=== PATIENT | female | born 1980 | race Two or more races ===

== ENCOUNTER 2019-01-08 11:15 | Inpatient (IN) | payer BC ==
[~2019-01-08] VITALS: Ht 167.6 cm; Wt 71.3 kg
[2019-01-08] MEDS ORDERED: LIDOCAINE W/ EPINEPHRINE 1 % INJ 30ML ONE (13:01)
[2019-01-08] MEDS ORDERED: BUPIVACAINE 0.25% INJ 50ML VIAL ONE (13:01)
[2019-01-08] MEDS ORDERED: fentaNYL CITRATE 10 ML ONE (13:14)
[2019-01-08] MEDS ORDERED: ROCURONIUM 10MG/ML 10ML VIAL IV ONE (13:14)
[2019-01-08] MEDS ORDERED: SODIUM CHLORIDE LOCK 10 ML ONE (13:14)
[2019-01-08] MEDS ORDERED: MIDAZOLAM HCL 1MG/1ML-2 ML VIAL ONE (13:14)
[2019-01-08] MEDS ORDERED: fentaNYL CITRATE 100 MCG/2 ML VL ONE (13:14)
[2019-01-08] MEDS ORDERED: HYDROmorphone HCL 2 MG/ML VL ONE (13:14)
[2019-01-08] MEDS ORDERED: PROPOFOL 10 MG/ML 20 ML IV ONE (13:14)
[2019-01-08] MEDS ORDERED: ONDANSETRON HCL 4 MG/2 ML VIAL ONE (13:14)
[2019-01-08] MEDS ORDERED: ceFAZolin 1GM/50ML 100 ML IV ONE (13:17)
[2019-01-08] MEDS ORDERED: ceFAZolin 1GM/50ML 50 ML IV ONE (13:30)
[2019-01-08] MEDS ORDERED: NITROGLYCERIN 0.4 MG SL TAB SL PRN (13:30)
[2019-01-08] MEDS ORDERED: ACETAMINOPHEN 500 MG TAB PO PRN (13:30)
[2019-01-08] MEDS ORDERED: MORPHINE SULF INJ 2 MG/ML SYRINGE 1ML IV PRN (13:30)
[2019-01-08] MEDS ORDERED: NEOSTIGMINE 1 MG/ML INJ (10mg/10ML VIAL) IV ONE (13:35)
[2019-01-08] MEDS ORDERED: DexAMETHasone SOD PHOS 10MG/1ML VIAL INJ IV ONE (13:35)
[2019-01-08] MEDS ORDERED: GLYCOPYRROLATE 0.2 MG/ML 1ML VIAL IV ONE (13:35)
[2019-01-08] MEDS ORDERED: SUCCINYLCHOLINE CHLORIDE 20 MG/ML 10ML VIAL IV ONE (13:35)
[2019-01-08] MEDS ORDERED: METHYLENE BLUE 0.5% 5MG/ML 10ml AMP IV ONE (13:59)
[2019-01-08] MEDS ORDERED: ceFAZolin 1GM VL ONE (14:55)
[2019-01-08] MEDS ORDERED: CONJ ESTROGENS 0.625MG/GM VAG CRM 30GM PV ONE (16:07)
[2019-01-08] MEDS ORDERED: LABETALOL HCL 5 MG/ML 4ML SYRINGE IV PRN (16:15)
[2019-01-08] MEDS ORDERED: hydrALAZINE HCL 20 MG/ML VL IV PRN (16:15)
[2019-01-08] MEDS ORDERED: HYDROmorphone HCL 2 MG/ML VL IV PRN (16:15)
[2019-01-08] MEDS ORDERED: ePHEDrine SULFATE 50 MG/ML AMP IV PRN (16:15)
[2019-01-08] MEDS ORDERED: MIDAZOLAM HCL 1MG/1ML-2 ML VIAL IV PRN (16:15)
[2019-01-08] MEDS ORDERED: ONDANSETRON HCL 4 MG/2 ML VIAL IV ONE (16:15)
[2019-01-08] MEDS ORDERED: KETOROLAC TROMETH 30 MG/ML 1ML VIAL IV ONE (16:15)
[2019-01-08 18:00] VITALS: BP 121/59
[2019-01-08] MEDS ORDERED: MORPHINE SULFATE 4 MG/ML SYR/VIAL IV ONE (18:00)
--- NOTE | 2019-01-08 18:00 | NUR ---
MS admit from OR LEROY VELASCO admitted to tele/MS after SBAR received. Patient oriented to CECILIA SUTTON, primary RN, unit, room, bed, and unit policies regarding patient care and visiting hours. Patient weighed by bed scale and encouraged to call if they need something. All questions and concerns addressed, patient verbalized understanding.
[2019-01-08] MEDS: SODIUM CHLORIDE 0.9% 1,000 ML IV SCH (18:48)
--- NOTE | 2019-01-08 19:30 | NUR ---
RECEIVED PATIENT LYING IN BED, AWAKE, ALERT, ORIENTED X4. NO S/S OF RESPIRATORY DISTRESS, DENIES SOB AND CHEST PAIN. ORIENTED ON PLAN OF CARE. BED IS LOCKED AND IN LOWEST LEVEL, SIDE RAILS UP X2, CALL LIGHT WITHIN REACH. WILL CONTINUE TO MONITOR
[2019-01-08] MEDS: MORPHINE SULFATE 4 MG/ML SYR/VIAL IV PRN (20:40)
[2019-01-08 21:47] VITALS: BP 114/73
[2019-01-09] MEDS: SODIUM CHLORIDE 0.9% 1,000 ML IV SCH ×5 (00:26→23:55)
[2019-01-09] MEDS: MORPHINE SULFATE 4 MG/ML SYR/VIAL IV PRN ×2 (04:47→11:41)
[2019-01-09 05:00] VITALS: BP 124/82
[2019-01-09 05:56] LABS: Basophils # (auto) 0 uL; Eosinophils # (auto) 0 uL; Hematocrit 32.1 % (36.0-46.0); Lymphocytes # (auto) 0.8 uL; Lymphocytes % (auto) 4.2 % (10.0-50.0); Mean Corpuscular Hemoglobin 31.8 pg (28.0-32.0); Mean Corpuscular Hgb Conc. 34.3 g/dL (32.0-36.0); Monocytes # (auto) 0.8 uL; Monocytes % (auto) 4.3 % (0.0-12.0); Neutrophils # (auto) 17.1 uL; Neutrophils % (auto) 91.5 % (37.0-80.0); Platelet Count (auto) 232 10^3/uL (140-450); Red Blood Cells 3.46 10^6/uL (4.0-5.20); Red Cell Distribution Width 12.9 % (11.8-14.3); White Blood Cell 18.7 10^3/uL (4.4-10.8)
--- NOTE | 2019-01-09 07:08 | NUR ---
CARE ENDORSED TO AM SHIFT RN
--- NOTE | 2019-01-09 07:15 | NUR ---
Vaginal Packing removed, no bleeding noted, will continue to monitor.
--- NOTE | 2019-01-09 08:15 | NUR ---
Opening Shift Note Assumed care of patient, awake and alert,oriented x4 and verbally responsive. Respiratory even and unlabored. No S/S of distress/SOB or pain. Skin is warm and dry to touch. Incision sites, dry, intact, no drainage noted. Instructed on POC and to call for assist PRN, will continue to monitor for changes Q1hr and PRN.
[2019-01-09 09:00] VITALS: BP 114/64
--- NOTE | 2019-01-09 11:51 | NUR ---
Trevor MARTINEZ at bedside.
[2019-01-09 13:00] VITALS: BP 114/69
[2019-01-09] MEDS: HYDROcodone-ACET 5/325MG TAB PO PRN ×2 (13:14→20:52)
--- NOTE | 2019-01-09 14:00 | NUR ---
Patient gets up to the chair with PT.
--- NOTE | 2019-01-09 14:30 | NUR ---
Per Trevor MARTINEZ, patient will be d/c tomorrow.
[2019-01-09] MEDS: KETOROLAC TROMETH 30 MG/ML 1ML VIAL IV PRN (16:58)
[2019-01-09 17:00] VITALS: BP 119/71
[2019-01-09 22:00] VITALS: BP 117/71
[2019-01-10] MEDS: HYDROcodone-ACET 5/325MG TAB PO PRN ×3 (03:10→13:48)
[2019-01-10 04:52] VITALS: BP 117/70
--- NOTE | 2019-01-10 07:04 | NUR ---
CARE ENDORSED TO AM SHIFT RN
--- NOTE | 2019-01-10 07:30 | NUR ---
Opening Shift Note Assumed care of patient, awake and alert. No S/S of distress/SOB or pain. Incision sites to abdomen, dry, intact, no drainage. Instructed on POC and to call for assist PRN, will continue to monitor for changes Q1hr and PRN.
[2019-01-10 08:13] VITALS: BP 118/75
[2019-01-10] MEDS: KETOROLAC TROMETH 30 MG/ML 1ML VIAL IV PRN ×2 (09:07→20:16)
[2019-01-10 13:00] VITALS: BP 118/74
[2019-01-10] MEDS: SODIUM CHLORIDE 0.9% 1,000 ML IV SCH ×2 (13:48→21:55)
[2019-01-10] MEDS: ONDANSETRON HCL 4 MG/2 ML VIAL IV PRN (15:58)
[2019-01-10] MEDS ORDERED: DOCUSATE SOD 100 MG CAP PO ONE (16:15)
[2019-01-10] MEDS ORDERED: FAMOTIDINE 20 MG TAB PO ONE (16:15)
[2019-01-10 16:55] LABS: Basophils # (auto) 0 uL; Basophils % (auto) 0.4 % (0.0-2.0); Eosinophils # (auto) 0.1 uL; Eosinophils % (auto) 0.5 % (0.0-7.0); Hematocrit 28.8 % (36.0-46.0); Hemoglobin 9.7 g/dL (12.2-16.2); Lymphocytes # (auto) 2.4 uL; Lymphocytes % (auto) 17.1 % (10.0-50.0); Mean Corpuscular Hemoglobin 31.5 pg (28.0-32.0); Mean Corpuscular Hgb Conc. 33.6 g/dL (32.0-36.0); Mean Corpuscular Volume 93.6 fL (80.0-100.0); Monocytes # (auto) 0.8 uL; Monocytes % (auto) 5.7 % (0.0-12.0); Neutrophils # (auto) 10.5 uL; Neutrophils % (auto) 76.3 % (37.0-80.0); Platelet Count (auto) 212 10^3/uL (140-450); Red Blood Cells 3.08 10^6/uL (4.0-5.20); White Blood Cell 13.8 10^3/uL (4.4-10.8)
[2019-01-10 17:07] LABS: INR 0.95 (0.9-1.15); Prothrombin Time 10.2 sec (9.27-12.13)
[2019-01-10 17:12] VITALS: BP 121/65
--- NOTE | 2019-01-10 19:15 | NUR ---
Opening Shift Note Received report from Thomas CORNELL. Assumed care of patient, awake and alert. No S/S of distress/SOB, post op pain at 7/10. Abdominal incision c/d/i with binder. Instructed on POC and to call for assist PRN, will continue to monitor for changes Q1hr and PRN.
[2019-01-10] MEDS: DOCUSATE SOD 100 MG CAP PO SCH (21:55)
[2019-01-10 22:00] VITALS: BP 122/70
[2019-01-11] MEDS: KETOROLAC TROMETH 30 MG/ML 1ML VIAL IV PRN (03:28)
[2019-01-11 04:30] VITALS: BP 119/75
[2019-01-11] MEDS: SODIUM CHLORIDE 0.9% 1,000 ML IV SCH ×2 (06:30→13:24)
--- NOTE | 2019-01-11 08:00 | NUR ---
Opening Shift Note Assumed care of patient, awake and alert, oriented x4 and verbally responsive. Respiratory even and unlabored. No S/S of distress/SOB or pain. Skin is warm and dry to touch. Incision sites to abdomen, dry and intact. Instructed on POC and to call for assist PRN, will continue to monitor for changes Q1hr and PRN.
[2019-01-11 08:27] VITALS: BP 120/76
[2019-01-11] MEDS: MORPHINE SULFATE 4 MG/ML SYR/VIAL IV PRN (08:44)
[2019-01-11] MEDS: DOCUSATE SOD 100 MG CAP PO SCH (09:33)
[2019-01-11] MEDS ORDERED: FAMOTIDINE 20 MG TAB PO SCH (10:00)
[2019-01-11] MEDS: HYDROcodone-ACET 5/325MG TAB PO PRN (11:49)
[2019-01-11 12:13] VITALS: BP 122/71
[2019-01-11 14:28] VITALS: BP 122/71
--- NOTE | 2019-01-11 14:50 | NUR ---
Patient walks to the nguyen with PT, tolerated well.
[2019-01-11] MEDS: ONDANSETRON HCL 4 MG/2 ML VIAL IV PRN (14:57)
--- NOTE | 2019-01-11 15:12 | NUR ---
Per d/c order, patient is going home with Jacobs, changed to leg bag. Explained to patient how to take of the jacobs, patient verbalized understanding.
--- NOTE | 2019-01-11 15:35 | NUR ---
Discharge instructions given as ordered. Encourage to follow up with PMD (Follow up with Dr. Bela Payne on Saturday or . Address : [id number], [address])as instructed. All questions and concerns addressed. Patient verbalized understanding. Medication reconciliation form completed and copy given to patient. IV removed with catheter intact, pressure dressing applied. Patient taken to vehicle via wheelchair with all personal belongings, accompanied by staff and family member. No distress noted at time of departure.
== END 2019-01-11 15:35 | disposition home or self-care (01) | DRG 743 ==
LOC: SUR 11:15 → CENTRAL 18:17
PROVIDERS: ADMIT Obstetrics & Gynecology; ATTEND Obstetrics & Gynecology
PROC: 0UB74ZZ Excision of Bilateral Fallopian Tubes, Percutaneous Endoscopic Approach (ICD-10-PCS; 2019-01-08)
PROC: 0USG4ZZ Reposition Vagina, Percutaneous Endoscopic Approach (ICD-10-PCS; 2019-01-08)
PROC: 0TSD4ZZ Reposition Urethra, Percutaneous Endoscopic Approach (ICD-10-PCS; 2019-01-08)
PROC: 0JUC3JZ Supplement of Pelvic Region Subcutaneous Tissue and Fascia with Synthetic Substitute, Percutaneous Approach (ICD-10-PCS; 2019-01-08)
PROC: 0UBG0ZZ Excision of Vagina, Open Approach (ICD-10-PCS; 2019-01-08)
PROC: 8E0W4CZ Robotic Assisted Procedure of Trunk Region, Percutaneous Endoscopic Approach (ICD-10-PCS; 2019-01-08)
PROC: 0TJB8ZZ Inspection of Bladder, Via Natural or Artificial Opening Endoscopic (ICD-10-PCS; 2019-01-08)
PROC: 0UT94ZL Resection of Uterus, Supracervical, Percutaneous Endoscopic Approach (ICD-10-PCS; principal; 2019-01-08 13:35)
DX: N39.3 Stress incontinence (female) (male) (principal); N93.9 Abnormal uterine and vaginal bleeding, unspecified; N81.11 Cystocele, midline; Z83.3 Family history of diabetes mellitus; Z82.49 Family history of ischemic heart disease and other diseases of the circulatory system
CPT/HCPCS: 36415; 85025; 85610; 86850; 86900; 86901; 97163; A6257; C1771; G0378; J0330; J0690; J1100; J1885; J2250; J2405; J2704; J3490